=== PATIENT | female | born 1985 | race Caucasian/White ===

== ENCOUNTER 2021-06-02 12:44 | Emergency (ER) | payer MEDICAID ==
--- NOTE | 2021-06-02 14:59 | NUR ---
THIRD CALL, NOT IN LOBBY
== END 2021-06-02 15:00 | disposition left against medical advice (07) ==
LOC: ER 12:44
DX: T65.91XA Toxic effect of unspecified substance, accidental (unintentional), initial encounter (principal); Z53.21 Procedure and treatment not carried out due to patient leaving prior to being seen by health care provider; Y92.89 Other specified places as the place of occurrence of the external cause

== ENCOUNTER 2022-03-04 07:38 | Emergency (ER) | payer MEDICAID | END 2022-03-04 08:40 | disposition left against medical advice (07) | LOC: ER 07:39 | DX: Z04.6 Encounter for general psychiatric examination, requested by authority (principal); Z53.21 Procedure and treatment not carried out due to patient leaving prior to being seen by health care provider ==

== ENCOUNTER 2022-03-05 01:12 | Emergency (ER) | payer MEDICAID ==
[~2022-03-05] VITALS: Ht 167.6 cm; Wt 90.9 kg
[2022-03-05 01:30] VITALS: BP 148/90
== END 2022-03-05 04:00 | disposition left against medical advice (07) ==
LOC: ER 01:13
DX: R21 Rash and other nonspecific skin eruption (principal); Z53.21 Procedure and treatment not carried out due to patient leaving prior to being seen by health care provider

== ENCOUNTER 2022-03-09 17:49 | Emergency (ER) | payer MEDICAID ==
[~2022-03-09] VITALS: Ht 177.8 cm; Wt 90.0 kg
[2022-03-09 23:32] VITALS: BP 139/93
== END 2022-03-10 00:03 | disposition home or self-care (01) ==
LOC: ER 17:50
DX: R06.02 Shortness of breath (principal); H53.9 Unspecified visual disturbance; Z72.0 Tobacco use; R47.81 Slurred speech; F17.200 Nicotine dependence, unspecified, uncomplicated
CPT/HCPCS: 70450; 71045; 93005; 99284; 99285

== ENCOUNTER 2022-03-15 01:52 | Emergency (ER) | payer MEDICAID ==
[~2022-03-15] VITALS: Ht 167.6 cm; Wt 90.9 kg
[2022-03-15 02:11] VITALS: BP 128/75
[2022-03-15] MEDS: TETanus/Pertussis (Acell)/Diphther VAC/PF (Tdap-Adult) 0.5ml syringe IMVAC ONE ×2 (02:52→03:04)
== END 2022-03-15 03:20 ==
LOC: ER 01:53
DX: S60.511A Abrasion of right hand, initial encounter (principal); W22.8XXA Striking against or struck by other objects, initial encounter; Y93.89 Activity, other specified; Y92.89 Other specified places as the place of occurrence of the external cause; Y99.8 Other external cause status
CPT/HCPCS: 90715; 99283